=== PATIENT | male | born 1990 | race Caucasian/White ===

== ENCOUNTER 2021-03-05 20:52 | Emergency (ER) | payer BC ==
[~2021-03-05] VITALS: Ht 170.2 cm; Wt 59.0 kg
== END 2021-03-05 22:49 | disposition home or self-care (01) ==
LOC: ER 20:52
DX: Z00.00 Encounter for general adult medical examination without abnormal findings (principal); R51.9 Headache, unspecified; M54.2 Cervicalgia; Y04.8XXA Assault by other bodily force, initial encounter
CPT/HCPCS: 99282